=== PATIENT | male | born 1985 | race Caucasian/White ===

== ENCOUNTER 2017-09-25 00:09 | Emergency (ER) | payer BC ==
[~2017-09-25] VITALS: Ht 190.5 cm; Wt 101.6 kg
[2017-09-25 00:20] VITALS: Ht 190.5 cm; Wt 101.6 kg
[2017-09-25 02:36] VITALS: BP 138/77
== END 2017-09-25 02:36 | disposition home or self-care (01) ==
LOC: ED 00:09
DX: S13.4XXA Sprain of ligaments of cervical spine, initial encounter (principal); S80.02XA Contusion of left knee, initial encounter; S80.01XA Contusion of right knee, initial encounter; S50.811A Abrasion of right forearm, initial encounter; V89.2XXA Person injured in unspecified motor-vehicle accident, traffic, initial encounter; Y93.73 Activity, racquet and hand sports; Y92.89 Other specified places as the place of occurrence of the external cause; Y99.8 Other external cause status